=== PATIENT | male | born 1965 | race Caucasian/White ===

== ENCOUNTER 2018-06-07 13:08 | Emergency (ER) | payer MEDICARE, MEDICAID, BC ==
[2018-06-07] MEDS: KETOROLAC 30 MG INJ IM (13:46)
== END 2018-06-07 14:13 | disposition home or self-care (01) ==
LOC: FTE 13:08
DX: M25.511 Pain in right shoulder (principal); M25.512 Pain in left shoulder
CPT/HCPCS: 96372; 99284-25